=== PATIENT | female | born 1980 | race Caucasian/White ===

== ENCOUNTER 2016-10-04 07:58 | Day surgery (SDC) | payer BC ==
[2016-10-01 13:53] LABS: BILIRUBIN,URINE NEGATIVE (NEGATIVE); BLOOD, URINE 3+ (NEGATIVE); CLARITY/URINE SL HAZY (CLEAR); GLUCOSE,URINE NEGATIVE (NEGATIVE); KETONES,URINE NEGATIVE (NEGATIVE); LEUKOCYTE ESTERASE ,URINE TRACE (NEGATIVE); NITRITE, URINE NEGATIVE (NEGATIVE); PH,URINE 5.5 (5.0-8.0); PROTEIN URINE TRACE (NEGATIVE); UROBILINOGEN,URINE 0.2 (0.2-1.0)
[2016-10-01 14:01] LABS: COLOR,URINE RED (YELLOW)
[2016-10-01 14:22] LABS: BACTERIA,URINE FEW /HPF (None Seen); MUCUS,URINE None Seen /LPF (None Seen); RBC,URINE 50-80 /HPF (0-3); WBC,URINE 0-3 /HPF (0-3)
[2016-10-01 20:22] LABS: BASOPHILS # (AUTO) 0.1 K/uL (0.0-0.2); BASOPHILS % (AUTO) 0.7 % (0.0-2.0); EOSINOPHILS # (AUTO) 0.1 K/uL (0.0-0.4); EOSINOPHILS % (AUTO) 1.8 % (0.0-4.0); HEMATOCRIT 36.9 % (36-48); HEMOGLOBIN 12.8 g/dL (12.0-16.0); LYMPHOCYTES # (AUTO) 2.1 K/uL (1.0-5.5); LYMPHOCYTES % (AUTO) 28.3 % (20.5-51.5); MEAN CORPUSCULAR HEMOGLOBIN 32 pg (27-31); MEAN CORPUSCULAR HGB CONC 35 % (32-36); MEAN CORPUSCULAR VOLUME 93 fL (79.0-98.0); MONOCYTES # (AUTO) 0.3 K/uL (0.0-1.0); MONOCYTES % (AUTO) 4.3 % (1.7-9.3); NEUTROPHILS # (AUTO) 4.8 K/uL (1.8-7.7); NEUTROPHILS % (AUTO) 64.9 % (40.0-70.0); PLATELET COUNT (AUTO) 216 K/uL (130-430); RED BLOOD CELL COUNT(AUTO) 3.99 MIL/uL (4.2-6.2); RED CELL DISTRIBUTION WIDTH 12.1 % (9.0-15.0); WHITE BLOOD COUNT (AUTO) 7.4 K/uL (4.8-10.8)
[~2016-10-04] VITALS: Ht 175.3 cm; Wt 96.2 kg
[2016-10-04] MEDS ORDERED: fentaNYL CITRATE 250 MCG/5 ML AMP IV ONE (10:02)
[2016-10-04] MEDS ORDERED: PROPOFOL 200MG/ 20ML VIAL (DIPRIVAN) IV ONE (10:02)
[2016-10-04] MEDS ORDERED: SEVOFLURANE 15 MIN GAS INH ONE (10:02)
[2016-10-04] MEDS ORDERED: NS 1000 ML BAG IV ONE (10:02)
[2016-10-04] MEDS ORDERED: LR 1,000 ML IV.SOLN IV ONE (10:02)
[2016-10-04] MEDS ORDERED: DEXAMETHASONE SOD PHOSPHATE 4 MG/ML VIAL IVP ONE (10:02)
[2016-10-04 10:03] VITALS: O2SAT 100
[2016-10-04] MEDS ORDERED: LR 1,000 ML IV ONE (10:57)
[2016-10-04] MEDS ORDERED: fentaNYL CITRATE/PF 100 MCG/2 ML AMP IVP PRN (11:00)
[2016-10-04] MEDS ORDERED: DIPHENHYDRAMINE INJ 50 MG/ML VIAL IVP PRN (11:00)
[2016-10-04] MEDS ORDERED: NALBUPHINE HCL 10 MG/ML AMP IVP PRN (11:00)
[2016-10-04] MEDS ORDERED: IBUPROFEN 800 MG TABLET PO PRN (11:00)
[2016-10-04] MEDS ORDERED: NALOXONE HCL 0.4 MG/ML AMP (NARCAN) IVP PRN (11:00)
[2016-10-04] MEDS ORDERED: KETOROLAC TROMETHAMINE 30 MG VIAL IM PRN (11:00)
[2016-10-04] MEDS ORDERED: ONDANSETRON HCL 4 MG/2 ML VIAL IVP PRN ×3 (11:00)
[2016-10-04] MEDS ORDERED: OXYCODONE/ACETAMINOPHEN 5-325 TABLET PO PRN ×2 (11:00)
[2016-10-04] MEDS ORDERED: ePHEDrine sulfate 50 MG/ML VIAL IVP PRN (11:00)
[2016-10-04 13:07] VITALS: BP 97/64; PULSE 68; RESP 17
== END 2016-10-04 12:25 | disposition home or self-care (01) ==
LOC: SDS 07:58 → SMU 08:16 → SDS 12:25
PROVIDERS: ATTEND Obstetrics & Gynecology
DX: N84.0 Polyp of corpus uteri (principal); E66.9 Obesity, unspecified
CPT/HCPCS: 36415; 58558; 81000; 84703; 85025; 86886; 86900; 86901; 88305; J1100; J2704; J3010; J7030; J7120